=== PATIENT | female | born 1995 ===

== ENCOUNTER → 2018-02-10 | Outpatient (CLI) | payer BC ==
--- NOTE | 2018-02-10 10:29 | DIAGNOSTIC IMAGING REPORT ---
LUMBAR SPINE MIN 4 VIEWS CLINICAL HISTORY: Lower back pain. COMPARISON: None FINDINGS: Alignment of the lumbar spine is anatomic. There are 5 lumbar type vertebra. No fracture or suspicious lesion is present. Disc spaces are preserved. Sacroiliac joints are intact. IMPRESSION: Unremarkable lumbar spine radiographs. Electronically signed by: Noble Parra M.D. 02/10/2018 10:28 AM Dictated Date/Time: 02/10/2018 10:27 AM
== END | disposition home or self-care (01) ==
LOC: C.RDSM 14:24
PROVIDERS: ATTEND Family Medicine
DX: M54.5 Low back pain (principal)